=== PATIENT | female | born 1935 | race Caucasian/White ===

== ENCOUNTER 2017-12-15 08:05 | Day surgery (SDC) | payer MEDICARE, OTHER ==
[2017-12-14 12:44] LABS: BASOPHILS % (AUTO) 0 % (0-1); EOSINOPHILS # (AUTO) 0.08 x10^3/uL (0-0.4); EOSINOPHILS % (AUTO) 2 % (1-7); LYMPHOCYTES # (AUTO) 0.46 x10^3/uL (1-3.4); LYMPHOCYTES % (AUTO) 12 % (22-44); MD NO; MEAN CORPUSCULAR HEMOGLOBIN 26.5 pg (27.0-34.8); MEAN CORPUSCULAR HGB CONC 31.6 g/dL (32.4-35.8); MEAN CORPUSCULAR VOLUME 83.9 fL (80-100); MONOCYTES # (AUTO) 0.23 x10^3/uL (0.2-0.8); MONOCYTES % (AUTO) 6 % (2-9); NEUTROPHILS # (AUTO) 3.05 x10^3/uL (1.8-6.8); NEUTROPHILS % (AUTO) 80 % (42-75); PLATELET COUNT 148 x10^3/uL (130-400); RED BLOOD COUNT 3.09 x10^6/uL (3.82-5.3); RED CELL DISTRIBUTION WIDTH 17.1 % (9.6-15.2)
[2017-12-14 12:52] LABS: ANION GAP 7 mmol/L (5-15); CALCIUM 7.9 mg/dL (8.5-10.1); CHLORIDE 97 mmol/L (98-107); CREATININE 2.25 mg/dL (0.55-1.02)
[~2017-12-15] VITALS: Ht 167.6 cm; Wt 72.7 kg
[~2017-12-15 08:05] MED LIST: AMIT100T PO; ASPI-496 PO; ATOR20TA PO; ATOR20TA9 PO; DIGO125T PO; DIGO125T6 PO; DILT120T3 PO; DILT240C2 PO; DILT240C77 PO; DILT360C26 PO; DOCU100C33 PO; DOCU100T3 PO; DULO60CA7 PO; FERR325T18 PO; FURO-92 PO; FURO40TA6 PO; GABA100C PO; HYDR-2442 PO; HYDR-3150 PO; LEVO750T26 PO; LINA5TAB PO; LISI-167 PO; LISI-170 PO; OMEP-110 PO; OMEP20CA9 PO; OXYC5TAB3 PO; PANT20TA3 PO; PANT40TA3 PO; PANT40TA5 PO; POTA10PI2 PO; POTA10TA PO; POTA20TA14 PO; POTA20TA91 PO; PRED20TA PO; SERT100T5 PO; SUCR1TAB PO
[2017-12-15] MEDS ORDERED: SODIUM CHLORIDE 0.9% 1,000 ML IV SCH (08:19)
[2017-12-15 08:22] VITALS: BP 159/99
[2017-12-15] MEDS ORDERED: CEFAZOLIN PMX 1GM/50ML 50 ML IVPB ONE (08:30)
[2017-12-15] MEDS ORDERED: MIDAZOLAM 1 MG/ML, 2ML ONE (08:55)
[2017-12-15] MEDS ORDERED: CEFAZOLIN 1,000 MG ONE (08:55)
[2017-12-15] MEDS ORDERED: CEFAZOLIN PMX 1GM/50ML 50 ML ONE (08:55)
[2017-12-15] MEDS ORDERED: LIDOCAINE 2%, 20ML ONE (08:55)
[2017-12-15] MEDS ORDERED: FENTANYL PF 100 MCG/2ML ONE ×2 (08:55→10:02)
[2017-12-15] MEDS ORDERED: HYDROcodone/APAP 5/325 TABLET ONE (11:43)
[2017-12-15] MEDS ORDERED: HYDROcodone/APAP 5/325 TABLET PO ONE (12:00)
[2017-12-15] MEDS ORDERED: UMEC1DIS INH (20:46)
[2017-12-15] MEDS ORDERED: LISI-167 PO (20:46)
[2017-12-15] MEDS ORDERED: OMEP-110 PO (20:46)
[2017-12-15] MEDS ORDERED: HYDR-3237 PO (20:46)
[2017-12-15] MEDS ORDERED: SODIUM CHLORIDE FLUSH 10ML SYR IVF SCH (21:00)
== END 2017-12-15 13:00 ==
LOC: CACL 08:05
PROVIDERS: ATTEND Internal Medicine Cardiovascular Disease
DX: Z45.010 Encounter for checking and testing of cardiac pacemaker pulse generator [battery] (principal); I48.2 Chronic atrial fibrillation; E11.22 Type 2 diabetes mellitus with diabetic chronic kidney disease; I13.0 Hypertensive heart and chronic kidney disease with heart failure and stage 1 through stage 4 chronic kidney disease, or unspecified chronic kidney disease; N18.4 Chronic kidney disease, stage 4 (severe); I50.30 Unspecified diastolic (congestive) heart failure; E78.5 Hyperlipidemia, unspecified; F41.9 Anxiety disorder, unspecified; I25.10 Atherosclerotic heart disease of native coronary artery without angina pectoris; F32.9 Major depressive disorder, single episode, unspecified; M19.90 Unspecified osteoarthritis, unspecified site; I51.7 Cardiomegaly; J44.9 Chronic obstructive pulmonary disease, unspecified; F17.200 Nicotine dependence, unspecified, uncomplicated; Z88.1 Allergy status to other antibiotic agents; Z88.8 Allergy status to other drugs, medicaments and biological substances
CPT/HCPCS: 33228; 36415; 80048; 80162; 85025; 99156; 99157; C1786; J0690; J2250; J3010; J3490

== ENCOUNTER 2017-12-15 19:57 | Emergency (ER) | payer MEDICARE, OTHER ==
[~2017-12-15] VITALS: Ht 167.6 cm; Wt 68.1 kg
[2017-12-15] MEDS ORDERED: SODIUM CHLORIDE FLUSH 10ML SYR IVF ONE (20:30)
[2017-12-15] MEDS ORDERED: SODIUM CHLORIDE 0.9% 1,000ML IVBOLUS ONE (20:30)
[2017-12-15 20:37] LABS: INTERNATIONAL NORMALIZED RATIO 1.1 (0.93-1.1); PROTHROMBIN TIME 11.4 Seconds (9.6-11.5)
[2017-12-15 20:39] LABS: ALANINE AMINOTRANSFERASE 26 U/L (12-78); ALBUMIN 3.4 g/dL (3.4-5.0); ANION GAP 11 mmol/L (5-15); CALCIUM 8.2 mg/dL (8.5-10.1); CHLORIDE 95 mmol/L (98-107); CREATININE 2.72 mg/dL (0.55-1.02)
[2017-12-15 20:41] LABS: ALKALINE PHOSPHATASE 72 U/L (45-117); BILIRUBIN,TOTAL 0.5 mg/dL (0.2-1.0); TOTAL PROTEIN 6.5 g/dL (6.4-8.2)
[2017-12-15 20:45] LABS: BASOPHILS # (AUTO) 0.03 x10^3/uL (0-0.1); BASOPHILS % (AUTO) 1 % (0-1); EOSINOPHILS # (AUTO) 0.22 x10^3/uL (0-0.4); EOSINOPHILS % (AUTO) 4 % (1-7); LYMPHOCYTES # (AUTO) 0.79 x10^3/uL (1-3.4); LYMPHOCYTES % (AUTO) 14 % (22-44); MD NO; MEAN CORPUSCULAR HEMOGLOBIN 26.1 pg (27.0-34.8); MEAN CORPUSCULAR HGB CONC 31.6 g/dL (32.4-35.8); MEAN CORPUSCULAR VOLUME 82.6 fL (80-100); MEAN PLATELET VOLUME 7.6 fL (7.4-10.4); MONOCYTES % (AUTO) 7 % (2-9); NEUTROPHILS # (AUTO) 4.05 x10^3/uL (1.8-6.8); NEUTROPHILS % (AUTO) 74 % (42-75); PLATELET COUNT 219 x10^3/uL (130-400); RED BLOOD COUNT 3.58 x10^6/uL (3.82-5.3); RED CELL DISTRIBUTION WIDTH 17.4 % (9.6-15.2)
[2017-12-15] MEDS ORDERED: UMEC1DIS INH (20:46)
[2017-12-15] MEDS ORDERED: LISI-167 PO (20:46)
[2017-12-15] MEDS ORDERED: HYDR-3237 PO (20:46)
[2017-12-15] MEDS ORDERED: OMEP-110 PO (20:46)
[2017-12-15] MEDS ORDERED: FUROSEMIDE 40 MG/4 ML ONE (22:42)
[2017-12-15] MEDS ORDERED: POTASSIUM CHLORIDE 20 MEQ TAB.ER.PRT ONE (22:42)
[2017-12-15] MEDS ORDERED: POTASSIUM CHLORIDE 20 MEQ TAB.ER.PRT PO ONE (23:00)
[2017-12-15] MEDS ORDERED: FUROSEMIDE 40 MG/4 ML IV ONE (23:00)
[2017-12-15 23:08] VITALS: BP 139/76
== END 2017-12-15 23:20 | disposition home or self-care (01) ==
LOC: ED 22:48
DX: R60.0 Localized edema (principal); D63.1 Anemia in chronic kidney disease; D50.9 Iron deficiency anemia, unspecified; I13.0 Hypertensive heart and chronic kidney disease with heart failure and stage 1 through stage 4 chronic kidney disease, or unspecified chronic kidney disease; E11.22 Type 2 diabetes mellitus with diabetic chronic kidney disease; N18.3 Chronic kidney disease, stage 3 (moderate); I50.9 Heart failure, unspecified; I48.91 Unspecified atrial fibrillation; M19.90 Unspecified osteoarthritis, unspecified site; E78.5 Hyperlipidemia, unspecified; J44.9 Chronic obstructive pulmonary disease, unspecified; K21.9 Gastro-esophageal reflux disease without esophagitis; I25.10 Atherosclerotic heart disease of native coronary artery without angina pectoris; F17.210 Nicotine dependence, cigarettes, uncomplicated; Z95.0 Presence of cardiac pacemaker
CPT/HCPCS: 36415; 80053; 83880; 85025; 85610; 85730; 86850; 86900; 93005; 96361; 96374; 99285; J1940; J7030